=== PATIENT | male | born 1960 | race Caucasian/White ===

== ENCOUNTER 2018-10-24 05:49 | Day surgery (SDC) | payer BC ==
[2018-10-24] MEDS ORDERED: PROPOFOL 200 MG INJ (07:00)
[2018-10-24] MEDS ORDERED: LIDOCAINE 100 MG SYRINGE (07:10)
[2018-10-24] MEDS ORDERED: PROPOFOL 40 ML (07:10)
[2018-10-24] MEDS ORDERED: FENTAnyl 50 MCG/ML VIAL (07:11)
== END 2018-10-24 11:37 | disposition home or self-care (01) ==
LOC: GIL 05:49
DX: D12.3 Benign neoplasm of transverse colon (principal); K31.9 Disease of stomach and duodenum, unspecified; K64.8 Other hemorrhoids; K20.8 Other esophagitis; J44.9 Chronic obstructive pulmonary disease, unspecified; I48.91 Unspecified atrial fibrillation; I50.9 Heart failure, unspecified; Z95.810 Presence of automatic (implantable) cardiac defibrillator
CPT/HCPCS: 43239; 88305; 88312